=== PATIENT | female | born 1960 | race Caucasian/White ===

== ENCOUNTER 2017-02-27 19:42 | Emergency (ER) | payer OTHER | END 2017-02-27 22:30 | disposition home or self-care (01) | LOC: ER1 19:42 | DX: J06.9 Acute upper respiratory infection, unspecified (principal); I10 Essential (primary) hypertension; Z88.8 Allergy status to other drugs, medicaments and biological substances; Z79.899 Other long term (current) drug therapy | CPT/HCPCS: 71020; 99283 ==

== ENCOUNTER → 2021-05-07 | Outpatient (CLI) | payer BC, OTHER | LOC: KOH-I 16:21 | DX: M25.561 Pain in right knee (principal) | CPT/HCPCS: 73564 ==

== ENCOUNTER → 2021-08-14 | Outpatient (CLI) | payer BC | LOC: KOH-I 15:13 | DX: M23.91 Unspecified internal derangement of right knee (principal); M94.261 Chondromalacia, right knee; M17.11 Unilateral primary osteoarthritis, right knee; S83.241A Other tear of medial meniscus, current injury, right knee, initial encounter | CPT/HCPCS: 73721 ==

== ENCOUNTER → 2022-07-31 | Outpatient (CLI) | payer BC | LOC: HEART 5 13:10 | DX: R01.1 Cardiac murmur, unspecified (principal); I51.7 Cardiomegaly | CPT/HCPCS: 93306 ==